=== PATIENT | female | born 1960 | race Caucasian/White ===

== ENCOUNTER 2017-11-20 10:16 | Day surgery (SDC) | payer OTHER ==
[2017-11-20] MEDS: SOD CHLORIDE 0.9% 1,000 ML IV (11:18)
[2017-11-20] MEDS ORDERED: SODIUM CL BACTERIOSTATIC 30 ML INJ (14:02)
[2017-11-20] MEDS ORDERED: LIDOCAINE 1%/EPI 30 ML INJ (14:17)
[2017-11-20] MEDS ORDERED: EPINEPHrine 100 MCG/10 ML SYG IV (14:17)
[2017-11-20] MEDS ORDERED: MIDAZOLAM 1 MG/ML 2 ML INJ (14:45)
[2017-11-20] MEDS: BUPIVACAINE 0.25% (MPF) 30 ML INJ (15:29)
[2017-11-20] MEDS: EPINEPHrine 0.1 MG/ML SYG (15:29)
[2017-11-20] MEDS: POLYMYXIN/BACITRACIN 1L IRRIG (15:29)
[2017-11-20] MEDS: GENTAMICIN 80 MG INJ (15:29)
[2017-11-20] MEDS ORDERED: GLYCOPYRROLATE 0.4 MG INJ (17:03)
[2017-11-20] MEDS ORDERED: ONDANSETRON 4 MG INJ (17:03)
[2017-11-20] MEDS ORDERED: LIDOCAINE 2% (SDV) 5 ML INJ (17:03)
[2017-11-20] MEDS ORDERED: NEOSTIGMINE 3 MG/3 ML SYRINGE (17:03)
[2017-11-20] MEDS ORDERED: PROPOFOL 20 ML (17:03)
[2017-11-20] MEDS ORDERED: ROCURONIUM 50 MG INJ (17:03)
[2017-11-20] MEDS ORDERED: HYDROmorphONE 1 MG/5 ML IV SYRINGE IV ×2 (17:30→17:31)
[2017-11-20] MEDS ORDERED: LABETALOL HCL 20MG INJ IV (17:30)
[2017-11-20] MEDS ORDERED: ONDANSETRON 4 MG INJ IV ×2 (17:30)
[2017-11-20] MEDS ORDERED: morphine 2 MG INJ IV (17:30)
[2017-11-20] MEDS ORDERED: HYDROCODONE/APAP (5/325) TAB PO (17:30)
[2017-11-20] MEDS ORDERED: DIPHENHYDRAMINE 50 MG INJ IV (17:30)
[2017-11-20] MEDS ORDERED: hydrALAzine 20 MG INJ IV (17:30)
[2017-11-20] MEDS ORDERED: FENTAnyl 50 MCG/ML VIAL IV (17:30)
[2017-11-20] MEDS ORDERED: METOCLOPRAMIDE 10 MG INJ (17:31)
[2017-11-20] MEDS ORDERED: MEPERIDINE 25 MG INJ (17:32)
[2017-11-20] MEDS: HYDROmorphONE 1 MG/5 ML IV SYRINGE IV (17:43)
[2017-11-20] MEDS: METOCLOPRAMIDE 10 MG INJ IV (17:43)
[2017-11-20] MEDS: MEPERIDINE 25 MG INJ IV (17:44)
== END 2017-11-20 19:51 | disposition home or self-care (01) ==
LOC: SDS 10:16
DX: Z42.1 Encounter for breast reconstruction following mastectomy (principal); Z85.3 Personal history of malignant neoplasm of breast
CPT/HCPCS: 11970

== ENCOUNTER 2018-07-25 08:36 | Day surgery (SDC) | payer OTHER ==
[~2018-07-25 08:36] MED LIST: CEFAZOLIN 2 GM/50 ML (PMX) 50 ML IVPB
[2018-07-25] MEDS: SOD CHLORIDE 0.9% 1,000 ML IV (09:40)
[2018-07-25] MEDS ORDERED: LIDOCAINE 2% (SDV) 5 ML INJ (09:52)
[2018-07-25] MEDS ORDERED: FENTAnyl 50 MCG/ML VIAL (09:52)
[2018-07-25] MEDS ORDERED: CEFAZOLIN 1 GM INJ (09:52)
[2018-07-25] MEDS ORDERED: PROPOFOL 20 ML ×2 (09:52→10:00)
[2018-07-25] MEDS ORDERED: LIDOCAINE 1% (MPF) 30 ML INJ (10:32)
[2018-07-25] MEDS ORDERED: MEPERIDINE 25 MG INJ IV (11:00)
[2018-07-25] MEDS ORDERED: FENTAnyl 50 MCG/ML VIAL IV ×3 (11:00)
[2018-07-25] MEDS ORDERED: OXYCODONE/ACETAMINOPHEN (5/325) TAB PO ×2 (11:00)
[2018-07-25] MEDS ORDERED: ONDANSETRON 4 MG INJ IV (11:00)
[2018-07-25] MEDS: LIDOCAINE 1%/EPI (1:100,000) (MDV) 20 ML (11:14)
[2018-07-25] MEDS ORDERED: ONDANSETRON 4 MG INJ (11:17)
[2018-07-25] MEDS ORDERED: DEXAMETHASONE 4 MG/ML 5 ML INJ (11:21)
== END 2018-07-25 13:25 | disposition home or self-care (01) ==
LOC: SDS 08:36
DX: Z45.2 Encounter for adjustment and management of vascular access device (principal); Z85.3 Personal history of malignant neoplasm of breast
CPT/HCPCS: 36590; 88300; 93005